=== PATIENT | male | born 1965 | race Caucasian/White ===

== ENCOUNTER 2018-08-08 09:17 | Emergency (ER) | payer BC | END 2018-08-08 10:20 | disposition home or self-care (01) | LOC: MADERS 09:17 | DX: B34.9 Viral infection, unspecified (principal) | CPT/HCPCS: 87804; 99283 ==

== ENCOUNTER 2018-12-28 21:06 | Emergency (ER) | payer BC ==
[2018-12-28] MEDS ORDERED: Ketorolac Tromethamine 60 MG/2 ML VIAL ONE (21:46)
[2018-12-28] MEDS ORDERED: Adacel (T-DAP) 0.5 ML SYRINGE ONE (21:46)
[2018-12-28] MEDS ORDERED: Dexamethasone 4 MG TAB ONE (21:46)
== END 2018-12-28 22:10 | disposition home or self-care (01) ==
LOC: MADERS 21:06
DX: J02.9 Acute pharyngitis, unspecified (principal); G43.909 Migraine, unspecified, not intractable, without status migrainosus; I10 Essential (primary) hypertension; Z23 Encounter for immunization; F17.220 Nicotine dependence, chewing tobacco, uncomplicated; Z71.6 Tobacco abuse counseling
CPT/HCPCS: 87081; 87430; 87804; 90471; 90715; 96372; 99406; J1885; J8540